=== PATIENT | female | born 2000 | race Caucasian/White ===

== ENCOUNTER 2020-04-20 15:16 | Emergency (ER) | payer OTHER | END 2020-04-20 16:28 | disposition home or self-care (01) | LOC: JVIRT 15:16 | DX: Z11.59 Encounter for screening for other viral diseases (principal) | CPT/HCPCS: C9803; Q3014-GT; U0003 ==

== ENCOUNTER 2020-07-03 13:57 | Emergency (ER) | payer OTHER | END 2020-07-03 14:26 | disposition home or self-care (01) | LOC: JVIRT 13:57 | DX: Z20.822 Contact with and (suspected) exposure to COVID-19 (principal) | CPT/HCPCS: C9803; G2251-GT; U0003 ==